=== PATIENT | female | born 1960 | race Caucasian/White ===

== ENCOUNTER 2016-08-02 06:10 | Inpatient (IN) | payer OTHER ==
[~2016-08-02] VITALS: Ht 154.9 cm; Wt 68.4 kg
[2016-08-02 06:25] VITALS: BP 113/69; PULSE 69; RESP 20; TEMP 98.1; O2SAT 97
[2016-08-02] MEDS ORDERED: LACTATED RINGER'S 1000 ML IV PRN (06:45)
[2016-08-02] MEDS ORDERED: SODIUM CHLORID 0.9% 500 ML IV PRN (06:45)
[2016-08-02] MEDS ORDERED: METOPROLOL TARTRATE 25 MG TAB PO PRN (06:45)
[2016-08-02] MEDS ORDERED: INSULIN HUMAN REGULAR 1,000 UNITS/10 ML VIAL SQ PRN (06:45)
[2016-08-02] MEDS ORDERED: POVIDONE IODINE 5% (ANTISEPSIS KIT) 4 APPLICATIONS EACH NARE PRN (06:45)
[2016-08-02] MEDS ORDERED: CHLORHEXIDINE GLUCONATE 2 % 1 PACK (2 CLOTHS) TOPICAL PRN (06:45)
[2016-08-02] MEDS ORDERED: ceFAZolin 2 GM PREMIX 50 ML IV SCH (07:00)
[2016-08-02] MEDS ORDERED: THROMBIN (TOPICAL) 5,000 UNIT VIAL ONE (07:06)
[2016-08-02] MEDS ORDERED: LIDOCAINE 1%/EPINEPHrine 1:100,000 SOLN 50 ML VIAL ONE (07:06)
[2016-08-02] MEDS ORDERED: GENTAMICIN SULFATE 80 MG/2 ML VIAL ONE (07:06)
[2016-08-02] MEDS ORDERED: GELFOAM SIZE 100 ONE (07:06)
[2016-08-02] MEDS ORDERED: HYDR-3583 PO (07:37)
[2016-08-02] MEDS ORDERED: ACETAMINOPHEN 1000 MG/100 ML VIAL IV ONE (08:29)
[2016-08-02] MEDS ORDERED: ARTIFICIAL TEARS OPTH OINT 3.5 APPLIC/3.5 GM TUBO ONE (08:29)
[2016-08-02] MEDS ORDERED: MIDAZOLAM HCL 2 MG/2 ML VIAL ONE (08:29)
[2016-08-02] MEDS ORDERED: FAMOTIDINE 20 MG/2 ML VIAL ONE (08:30)
[2016-08-02] MEDS ORDERED: fentaNYL CITRATE 250 MCG/5 ML AMP ONE (08:30)
[2016-08-02] MEDS ORDERED: PHENYLEPH/NS 1000 MCG/10 ML SYR IV ONE (12:00)
[2016-08-02] MEDS ORDERED: NEOSTIGMINE 3 MG/3 ML SYR IV ONE (12:00)
[2016-08-02] MEDS ORDERED: ceFAZolin INJ 1,000 MG VIAL IV ONE (12:00)
[2016-08-02] MEDS ORDERED: LACTATED RINGER'S 1000 ML INJ 1,000 ML IV ONE (12:00)
[2016-08-02] MEDS ORDERED: PROPOFOL 200 MG/20 ML AMP IV ONE (12:00)
[2016-08-02] MEDS ORDERED: ONDANSETRON HCL 4 MG/2 ML VIAL IV PUSH ONE (12:00)
[2016-08-02] MEDS ORDERED: DO NOT ADM ANY ANTICOAGULANT DRUGS PRN (12:32)
[2016-08-02] MEDS ORDERED: *morphine SULFATE 8 MG/ML PERIprocedure ONLY ONE ×3 (13:11→14:09)
--- NOTE | 2016-08-02 13:34 | RADRPT ---
EXAM DATE/TIME: 08/02/2016 09:42 [place] COMPARISON: No previous studies available for comparison. INDICATIONS : Herniated disk, hardware placement C4-5. MEDICAL HISTORY : None. SURGICAL HISTORY : None. ENCOUNTER: Initial ACUITY: 1 day PAIN SCORE: 0/10 LOCATION: Cervical spine. FINDINGS: Single lateral spot fluoroscopic image obtained in the operating room during the procedure documents anterior cervical plate and screw fixation with material in the intervening disc space at C4-C5. CONCLUSION: Findings document ACDF at C4-C5. Jewel Bell MD on August 02, 2016 at 13:31 Board Certified Radiologist. This report was verified electronically.
[2016-08-02] MEDS ORDERED: ONDANSETRON HCL 4 MG/2 ML VIAL IV PRN (14:00)
[2016-08-02] MEDS ORDERED: NALOXONE HCL 0.4 MG/ML AMP IV PRN (14:00)
[2016-08-02] MEDS: D5-1/2 NS + KCL 20 MEQ INJ 1,000 ML IV SCH (14:00)
[2016-08-02] MEDS ORDERED: HYDROmorphone HCL PF 1 MG/ML VIAL IV PRN (14:00)
[2016-08-02] MEDS ORDERED: SODIUM CHLORIDE 0.9% FLUSH 10 ML FLUSH IV FLUSH PRN (14:00)
[2016-08-02] MEDS ORDERED: MORPHINE SULFATE 4 MG/ML INJ IV PRN (14:00)
[2016-08-02] MEDS ORDERED: ACETAMINOPHEN/HYDROcodone 325 MG/5 MG TAB PO PRN (14:00)
--- NOTE | 2016-08-02 14:12 | PD.OP ---
Operative Report Date of Surgery: Aug 02, 2016 Preoperative Diagnosis: (1) Cervical disc disorder with radiculopathy (2) Cervical disc disease with myelopathy (3) Cervical spinal stenosis Cervical spondylosis and degenerative disc disease Cervical radiculopathy, left C5-6 level on basis of symptoms, exam and imaging study Cervical stenosis with myelopathy, signal intensity changes in spinal cord on MRI Postoperative Diagnosis: (1) Cervical disc disorder with radiculopathy (2) Cervical disc disease with myelopathy (3) Cervical spinal stenosis Cervical spondylosis and degenerative disc disease Cervical radiculopathy, left C5-6 level on basis of symptoms, exam and imaging study Cervical stenosis with myelopathy, signal intensity changes in spinal cord on MRI Procedure: 1. C4 5 anterior cervical discectomy, bilateral foraminotomy 2. C4 5 anterior cervical interbody fusion, composite allograft bone 3. C4 5 anterior cervical instrumentation 4. Left C5 6 anterior cervical foraminotomy-microtechnique Anesthesia: Gen. Surgeon: Colton Renner [employer] Laboratory Technician(s): Saima Palacio Operation and Findings: Procedure in detail: The patient was brought into the operating room and positioned in supine position on the 3080 table with the head and neck in neutral position. Pickard catheter was placed. Lines were established by Anesthesia. Gen. endotracheal anesthesia was induced without difficulty, taking care not to significantly flex or extend the patient's neck during intubation and positioning. Leads for intraoperative neuro monitoring were placed and a baseline study obtained. All extremities were appropriately padded. The neck and upper chest were shaved with clippers and sterilely prepped and draped. Appropriate timeout procedure was performed with all personnel present and in agreement 1% Xylocaine with epinephrine was used for local infiltration over the incision site which was made transversely at the left C5 level and carried sharply down through the platysma muscle. The exposure was continued medial to the sternocleidomastoid muscle and carotid artery, and lateral to the trachea and esophagus. The prevertebral fascia was elevated away from the anterior longitudinal ligament with a Kitner sponge. The longus coli muscle on each side was elevated with the Granados elevator. The self-retaining retractor was placed with the blades beneath the longus coli muscle on each side. The appropriate levels were confirmed with intraoperative C-arm and preoperative imaging studies. The microscope was brought into place and used for the remainder of the procedure including the closure. The 14 mm distraction pins were used as needed for gentle distraction during the procedure. The procedure was performed initially at the C4 5 and then left C5 6 level At the C4 5 and left C5 6 level the anterior osteophyte was resected with the Leksell rongeur. C4 5 level: At the C4 5 level, the disc and annulus was incised with a 15 blade knife and discectomy performed with pituitary biopsy forceps and straight and angled curettes. The TPS drill with the 5 mm barrel bur was used to decorticate the endplates and removed the majority of the osteophyte along the anterior spinal canal as well as the right and left uncovertebral joint. The thin ligament dissector was used to free up the posterior annulus and ligament from the vertebral body margin. The remainder of the resection of the posterior annulus and ligament as well as the posterior osteophyte and bilateral uncovertebral joint was performed with the 2 and 3 mm thin footplate Kerrison rongeurs. A component of herniated nucleus pulposus was encountered posterior to the annulus and was lifted away from the thecal sac with the thickened ligament dissector and removed. Significant posterior osteophyte was encountered and extensively removed. The posterior vertebral bodies were undercut with the Kerrison rongeur and the TPS drill with the 4 mm mauricio bur as needed to fully decompress the anterior spinal canal. The appropriate size V G2 bone graft was then placed at each level with a good fit of the graft. The blunt nerve hook was used to probe beneath the bone graft to ensure that there was no impingement on the thecal sac or exiting nerve roots. The appropriate size Precision anterior cervical plate was then chosen and the bone screws were placed with the 14 mm fixed screws at the caudal most level and the 14 mm variable screws at the cephalad level of the decompression. The screws were firmly secured and the locking cams engaged. The entire construct was checked with intraoperative C-arm and felt to be satisfactory. C5 6 level: The left C5 6 annulus lateral to the anterior longitudinal ligament was incised with 15 blade knife and the small micro-curettes and micropituitary biopsy forceps were used to remove a small amount of the disc adjacent to the uncovertebral joint. The TPS drill with the 5 mm barrel bur was used to remove a small amount of the vertebral body and decorticate the endplate and thin out the medial left C5 6 uncovertebral joint. The rotund dissectors were used to release the posterior annulus away from the uncovertebral joint and lateral vertebral body margin. Herniated disc material was freed up with the microdissector and removed with the micro-biopsy forceps. The 1 and 2 mm thin footplate Kerrison rongeurs were used to widen out the foraminotomy and remove hypertrophied and torn posterior longitudinal ligament and the dorsal aspect of the left uncovertebral joint. The more ventral, anterior aspect of the uncovertebral joint was preserved for stability. The exiting left C6 nerve root was visualized and any osteophyte and hypertrophied ligament thoroughly removed around the nerve root at the foramen Bleeding at the left C5 6 foraminotomy site was controlled with temporary application of Gelfoam and thrombin. The 10 Serbian drain was brought out through a small incision in the left lower neck and secured to the skin with nylon suture and attached to sterile suction. The closure was performed with 3-0 Vicryl running for the platysma and interrupted for the subcutaneous closure, with 4-0 Vicryl running for the subcuticular closure. A dressing of sterile Mastisol, Steri-Strips, and Primapore dressing was placed. The patient was placed into a cervical collar, and taken to recovery room in stable condition. All counts were correct at the end of the case. Estimated blood loss was 50 cc No specimen was sent to pathology. Intraoperative neuro monitoring remained stable during the procedure. Colton Renner MD Aug 02, 2016 14:12
[2016-08-02 16:05] VITALS: BP 112/59; PULSE 82; RESP 20; TEMP 95.7; O2SAT 93
[2016-08-02 17:49] VITALS: O2SAT 98
[2016-08-02] MEDS: oxyCODONE/ACETAMINOPHEN 10 MG/325 MG TAB PO PRN (18:15)
[2016-08-02 20:00] VITALS: BP 131/73; PULSE 92; RESP 17; TEMP 96.6; O2SAT 96
[2016-08-02] MEDS: DOCUSATE SODIUM 100 MG CAP PO SCH (20:12)
[2016-08-02] MEDS: SODIUM CHLORIDE 0.9% FLUSH 10 ML FLUSH IV FLUSH SCH (20:31)
[2016-08-03] VITALS: BP 99/57; PULSE 76; RESP 18; TEMP 96.6; O2SAT 94
[2016-08-03] MEDS: oxyCODONE/ACETAMINOPHEN 10 MG/325 MG TAB PO PRN ×3 (00:23→11:33)
[2016-08-03] MEDS: D5-1/2 NS + KCL 20 MEQ INJ 1,000 ML IV SCH ×2 (00:24→10:21)
[2016-08-03 04:00] VITALS: BP 108/60; PULSE 73; RESP 17; TEMP 96.5; O2SAT 95
[2016-08-03 08:00] VITALS: BP 106/68; PULSE 66; RESP 15; TEMP 96; O2SAT 95
[2016-08-03] MEDS: DOCUSATE SODIUM 100 MG CAP PO SCH (08:14)
[2016-08-03] MEDS: SODIUM CHLORIDE 0.9% FLUSH 10 ML FLUSH IV FLUSH SCH (08:15)
[2016-08-03] MEDS ORDERED: PANTOPRAZOLE SOD 40 MG DELAYED RELEASE TAB PO SCH (09:00)
[2016-08-03 09:08] VITALS: O2SAT 93
[2016-08-03] MEDS ORDERED: OXYC1TAB36 PO (10:40)
--- NOTE | 2016-08-03 10:40 | HHI.DCPOC ---
Discharge Care Plan Diagnosis: (1) Cervical spinal stenosis (2) Cervical disc disorder with radiculopathy (3) Cervical disc disease with myelopathy Your Health Problems Are: Difficulty with ADL Incision/Drains Difficulty to Swallow Exercise Tolerance Loss of Movements Chronic Pain Goals to Promote Your Health * To prevent worsening of your condition and complications * To maintain your health at the optimal level Directions to Meet Your Goals Take your medications as prescribed Follow your dietary instruction Follow activity as directed Keep your appointments as scheduled Take your immunizations and boosters as scheduled If your symptoms worsen call your PCP, if no PCP go to Urgent Care Center or Emergency Room Smoking is Dangerous to Your Health. Avoid second hand smoke Call the 24-hour hour crisis hotline for domestic abuse at Colton Renner MD Aug 03, 2016 10:40
--- NOTE | 2016-08-03 10:46 | HHI.DS ---
Discharge Summary Admission Date Aug 02, 2016 at 06:17 Discharge Date: Aug 03, 2016 Admitting Diagnosis Cervical stenosis cervical degenerative disc disease Cervical myelopathy Left C5-C6 radiculopathy (1) Cervical spinal stenosis ICD Code: M48.02 (2) Cervical disc disorder with radiculopathy ICD Code: M50.10 (3) Cervical disc disease with myelopathy ICD Code: M50.00 Procedures 08/02/16: C4 5 ACDF Left C5 6 anterior foraminotomy PE at Discharge Respirations clear to auscultation Cardiac regular without murmur Abdomen soft nontender Mild drain output Next soft, no edema, no erythema Incision dry and intact. Mild hoarseness Increase room and left external auditory canal Possible mild left temporomandibular joint tenderness No facial edema or ecchymosis Extraocular movements intact Pupils 3 mm reactive to accommodation Sensation grossly intact upper and lower extremities light touch except for complaining of mild persistent paresthesias in the hands, may be slightly better compared to preoperatively. Strength-minimal weakness bilateral hand intrinsics-may be improved compared to preoperative. Otherwise normal strength major flexion and extension groups all extremities Hospital Course Patient admitted for above noted procedure performed without complication Postoperative day #1 tolerating liquids. No sign of dysphagia. Mild hoarseness. Sensorimotor symptoms and exam stable compared to preoperative. Drain discontinued. Physical therapy evaluation postop day #1. Stable for discharge home. Instructions given. Pt Condition on Discharge: Good Discharge Disposition: Discharge Home Discharge Instructions DIET: Follow Instructions for: Soft Diet ACTIVITIES You can perform: Weight Bearing As Pamela Activities to Avoid: Lifting/Bending, Strenuous Activity New Medications: Oxycodone-Acetaminophen (Oxycodone-Acetaminophen) 10-325 mg Tab 1 TAB PO Q6H PRN PAIN SCALE 6 TO 10 #30 Ref 0 TAB Continued Medications: Hydrocodone-Acetaminophen (Hydrocodone-Acetaminophen) 10-325 mg Tab 1 TAB PO Q6H PRN PAIN #30 Ref 0 TAB Additional Information DEBROX or similar medication left ear. [id number]. Ohts-aez-whmzdtg decongestant 3-5 days. Colton Renner MD Aug 03, 2016 10:46
--- NOTE | 2016-08-03 10:49 | HHI.NSPN ---
History Chief Complaint: mild neck pain. Left ear pain Interval History 08/02/16: C4 5 ACDF. Left C5 6 anterior foraminotomy for foraminal disc herniation System Review Comments Brief episode of anterior chest discomfort. No left arm or left upper chest pain. No shortness of breath. Tolerating liquids adequate. Exam Results Vital Signs Date Time Temp Pulse Resp B/P Pulse Ox O2 Delivery O2 Flow Rate FiO2 08/03/16 09:08 93 21 08/03/16 08:10 Room Air 08/03/16 08:00 96.0 66 15 106/68 08/02/16 18:52 2.00 Intake and Output 08/02/16 08/02/16 08/03/16 08:00 16:00 00:00 Intake Total 1350 ml 1088 ml Output Total 1140 ml 1125 ml Balance 210 ml -37 ml Physical Examination Mild drain output Next soft, no edema, no erythema Incision dry and intact. Mild hoarseness Increase room and left external auditory canal Possible mild left temporomandibular joint tenderness No facial edema or ecchymosis Extraocular movements intact Pupils 3 mm reactive to accommodation Sensation grossly intact upper and lower extremities light touch except for complaining of mild persistent paresthesias in the hands, may be slightly better compared to preoperatively. Strength-minimal weakness bilateral hand intrinsics-may be improved compared to preoperative. Otherwise normal strength major flexion and extension groups all extremities Medical Decision Making Impression and Plan Impression: 1. Stable neurologic status following above-noted procedure. Plan: Findings discussed with patient and family Discontinue drain Discontinue IV fluids Mobilize out of bed with physical therapy Continue cervical collar when out of bed Dressing Change Appears stable for discharge pending therapy Signs and symptoms to watch for, wound care, exercises, activity precautions also discussed. She will notify our office or come back to the hospital if any significant changes occur. Follow-up appointments scheduled Colton Renner MD Aug 03, 2016 10:49
[2016-08-03 12:00] VITALS: BP 129/85; PULSE 66; RESP 20; TEMP 96.9; O2SAT 98
[2016-08-03 16:00] VITALS: BP 134/72; PULSE 65; RESP 18; TEMP 97.7; O2SAT 94
== END 2016-08-03 17:30 | disposition home or self-care (01) | DRG 472 ==
LOC: HSDI 06:17 → N06A 15:47
PROVIDERS: ADMIT Neurological Surgery; ATTEND Neurological Surgery
PROC: 0RG10A0 Fusion of Cervical Vertebral Joint with Interbody Fusion Device, Anterior Approach, Anterior Column, Open Approach (ICD-10-PCS; 2016-08-02)
PROC: 0RB30ZZ Excision of Cervical Vertebral Disc, Open Approach (ICD-10-PCS; 2016-08-02)
PROC: 0PU30KZ Supplement Cervical Vertebra with Nonautologous Tissue Substitute, Open Approach (ICD-10-PCS; 2016-08-02)
PROC: 0PH304Z Insertion of Internal Fixation Device into Cervical Vertebra, Open Approach (ICD-10-PCS; 2016-08-02)
PROC: 0RB30ZZ Excision of Cervical Vertebral Disc, Open Approach (ICD-10-PCS; principal; 2016-08-02 08:44)
DX: M50.122 Cervical disc disorder at C5-C6 level with radiculopathy (principal); M50.022 Cervical disc disorder at C5-C6 level with myelopathy; M48.02 Spinal stenosis, cervical region; M47.22 Other spondylosis with radiculopathy, cervical region
CPT/HCPCS: 72040; 76000; 86850; 86900; 86901; 94150; C1713; J0131; J0690; J1580; J2250; J2270; J2370; J2405; J2710; J3010; J3480; J7120; L0150; L0172